=== PATIENT | male | born 1970 | race Caucasian/White ===

== ENCOUNTER → 2017-12-24 15:57 | Outpatient (CLI) | payer OTHER | END | disposition home or self-care (01) | LOC: D.MRI 15:57 | DX: S83.272A Complex tear of lateral meniscus, current injury, left knee, initial encounter (principal); X58.XXXA Exposure to other specified factors, initial encounter ==

== ENCOUNTER 2018-07-25 07:39 | Day surgery (SDC) | payer OTHER ==
[~2018-07-25] VITALS: Ht 182.9 cm; Wt 114.3 kg
[2018-07-25 09:09] VITALS: BP 121/74; Ht 182.9 cm; Wt 114.3 kg
[2018-07-25] MEDS ORDERED: DILAUDID2 MG PO (10:51)
--- NOTE | 2018-08-01 11:33 | OP ---
PATIENT NAME: ROD OLIVER MEDICAL RECORD: [id number] :74 LOCATION:[facility] ADMISSION DATE: SURGEON: JESUS DASILVA MD DATE OF OPERATION: 07/25/2018 PREOPERATIVE DIAGNOSIS: Anterior cruciate ligament tear of the left knee. POSTOPERATIVE DIAGNOSIS: Anterior cruciate ligament tear of the left knee. PROCEDURE: Arthroscopic assisted anterior cruciate ligament reconstruction -- allograft [id number]. SURGEON: Jesus Dasilva MD ANESTHESIA: General. INTRAOPERATIVE COMPLICATIONS: None. SUMMARY OF PATHOLOGIC FINDINGS: The patient indeed was found to have a full thickness anterior cruciate ligament tear with an intra-ligamentous ganglion cyst as seen on the MRI. This patient did have preoperative pivot shift and laxity. OPERATIVE SUMMARY IN DETAIL: After obtaining the appropriate preoperative orthopedic surgery consent as well as anesthetic consultation, evaluation and clearance, the patient was brought to the operating room and placed on the operating table in supine position. After general laryngeal mask airway was administered, tourniquet was placed on the proximal aspect of left lower extremity. Left lower extremity was then prepped and draped in routine sterile fashion. The leg was elevated and exsanguinated, tourniquet was inflated to 350 mmHg. Routine inferolateral portal was established followed by superomedial portal and anteromedial portal. Diagnostic arthroscopy showed relatively good articular surfaces in all 3 compartments. However, the ACL was infiltrated with a large central cyst and the patient had anterior translation on arthroscopic examination, the residual ACL was debrided. Notchplasty was performed. Tibial tunnel was created along with the femoral tunnel. Size 11 and 11. The preshaped anterior cruciate ligament allograft with the TightRope attachment was put into place and deployed, it was very nicely seated on both ends and the TightRope was then deployed to maximal tension. The knee was ranged several times and then the distal fixation was achieved with FiberWire over a post-bicortically. Wounds were then copiously irrigated and closed. Sterile dressings were applied. The patient was awakened, taken to recovery room in stable condition. All final needle and sponge counts were correct. TRANSINT:[id number] Voice Confirmation ID: [id number] DOCUMENT ID: [id number] JESUS DASILVA MD at 1139 CC: [id number] DICTATION DATE: 07/31/18 8406 SPRAY APPLICATOR: 08/01/18 0407 DEP SDC 07/25/18 [facility] [address] [facility] [place] [address]
== END 2018-07-25 12:45 | disposition home or self-care (01) ==
LOC: D.OPS 07:39
PROVIDERS: ATTEND Orthopaedic Surgery
DX: S83.512A Sprain of anterior cruciate ligament of left knee, initial encounter (principal); Z01.812 Encounter for preprocedural laboratory examination; X58.XXXA Exposure to other specified factors, initial encounter

== ENCOUNTER → 2019-08-07 15:18 | Outpatient (CLI) | payer OTHER ==
[2018-07-25 09:09] VITALS: BMI 34.2
[~2019-08-07 15:18] MED LIST: DILAUDID2 MG PO
== END | disposition home or self-care (01) ==
LOC: D.MRI 15:18
PROVIDERS: ATTEND Orthopaedic Surgery
DX: M66.869 Spontaneous rupture of other tendons, unspecified lower leg (principal)